=== PATIENT | male | born 1945 ===

== ENCOUNTER 2019-03-17 11:34 | Outpatient (CLI) | payer OTHER ==
[~2019-03-17 11:34] MED LIST: ALLOPURINOL100 MG PO; ASA81 MG PO; ATENOLOL100 MG PO; FELODIPINE ER5 MG PO; SIMVASTATIN40 MG PO; TAMS0.4C PO
== END 2019-03-17 11:37 | disposition home or self-care (01) ==
LOC: RAD 11:34
DX: K57.20 Diverticulitis of large intestine with perforation and abscess without bleeding (principal); K63.2 Fistula of intestine; N32.1 Vesicointestinal fistula

== ENCOUNTER 2019-03-19 12:45 | Inpatient (IN) | payer OTHER ==
[~2019-03-19] VITALS: Ht 167.6 cm; Wt 74.8 kg
[2019-03-19] MEDS ORDERED: TOPROL XL100 M1 PO (13:20)
[2019-03-19] MEDS ORDERED: UROXATRAL10 MG PO (13:21)
[2019-03-19] MEDS ORDERED: ZYLOPRIM100 MG PO (13:21)
[2019-04-01] MEDS ORDERED: HYOSCYAMINE0.125 M1 SL (10:04)
[2019-04-01] MEDS ORDERED: OXYC1TAB9 PO (10:05)
== END 2019-04-01 12:34 | disposition home or self-care (01) | DRG 330 ==
LOC: O/R 12:45 → SURH 03-24 06:15 → O/R 03-24 07:00 → SURH 03-24 19:20
PROVIDERS: ADMIT Surgery
PROC: 0DJD8ZZ Inspection of Lower Intestinal Tract, Via Natural or Artificial Opening Endoscopic (ICD-10-PCS; 2019-03-24)
PROC: 0DTN4ZZ Resection of Sigmoid Colon, Percutaneous Endoscopic Approach (ICD-10-PCS; principal; 2019-03-24 07:00)
DX: K57.20 Diverticulitis of large intestine with perforation and abscess without bleeding (principal); N32.1 Vesicointestinal fistula; K63.2 Fistula of intestine; T81.43XA Infection following a procedure, organ and space surgical site, initial encounter; K91.31 Postprocedural partial intestinal obstruction; I11.9 Hypertensive heart disease without heart failure; E78.00 Pure hypercholesterolemia, unspecified; N40.0 Benign prostatic hyperplasia without lower urinary tract symptoms; B96.6 Bacteroides fragilis [B. fragilis] as the cause of diseases classified elsewhere